=== PATIENT | male | born 1945 | race African-American/Black ===

== ENCOUNTER → 2017-03-10 | Outpatient (CLI) | payer MEDICARE, BC ==
--- NOTE | 2017-03-11 08:14 | XR ---
EXAMINATION TYPE: XR chest 2V DATE OF EXAM: 03/10/2017 COMPARISON: NONE INDICATION: Cough TECHNIQUE: Frontal and lateral views of the chest are obtained. FINDINGS: The heart size is normal. The pulmonary vasculature is normal. The lungs are clear. IMPRESSION: 1. No acute pulmonary process.
== END ==
LOC: RADXRMAIN 16:06
PROVIDERS: ATTEND Internal Medicine
DX: R05 Cough (principal)
CPT/HCPCS: 71020

== ENCOUNTER → 2019-04-19 | Outpatient (CLI) | payer MEDICARE, BC | END | disposition home or self-care (01) | LOC: LABWHC1 06:59 | PROVIDERS: ATTEND Urology | DX: R97.20 Elevated prostate specific antigen [PSA] (principal) | CPT/HCPCS: 36415; 84153; 84154 ==

== ENCOUNTER → 2020-06-17 | Outpatient (CLI) | payer MEDICARE, BC ==
--- NOTE | 2020-06-18 09:49 | MR ---
EXAMINATION TYPE: MR brain/cspine wo/w DATE OF EXAM: 06/17/2020 COMPARISON: None HISTORY: tingling fingers, shoulder pain. Technique: Multiecho multiplanar images of the brain and cervical spine were obtained with and withou t contrast. MRI brain: The ventricles, basal cisterns and sulci over the convexities are within normal limits and there is n o mass, mass effect or shift of the midline structures. No abnormal signal intensity is seen throughout the brain parenchyma. On diffusion-weighted imaging, there is no evidence of acute ischemic change. The posterior fossa including the brainstem, fourth ventricle and cerebellar pontine angles appear no rmal. Following contrast administration, there is no pathological enhancement. The intraorbital contents appear normal and symmetric. There is mild mucosal thickening in the ethmoi d sinuses indicating mild chronic sinusitis. There is moderate to marked fluid in the mastoid air moises ls bilaterally. MRI cervical spine: The craniovertebral junction relationships and prevertebral soft tissues are normal. There is moderate degenerative disc disease at the C3-4, C4-5, C5-6, C6-7 levels with moderate disc s pace narrowing, spondylosis and disc desiccation. Secondary to posterior disc bulge and spondylosis, there is mild to moderate mass effect on the ventr al aspect of the thecal sac at the C3-4, C4-5 and C5-6 levels.. At the C4-5 level there is mild cervi armando stenosis. There is neural foraminal encroachment as follows; severe at the C3-4 level on the left, severe at th e C4-5 level on the right, mild at the C4-5 level on the left, and severe at the C5-6 level on the ri ght. The cervical cord is normal in size and signal intensity. Following contrast administration, there is no pathological enhancement. The paraspinal soft tissues are unremarkable. IMPRESSION: 1. No significant abnormality of the brain. There is no evidence of mass, mass effect or acute ischem ic event. 2. Moderate diffuse degenerative disc disease throughout the cervical spine with significant neural f oraminal encroachment at multiple levels bilaterally. 3. Mild cervical stenosis at the C4-5 level. 4. Normal cervical cord.
== END | disposition home or self-care (01) ==
LOC: RADMRIMAIN 09:54
PROVIDERS: ATTEND Internal Medicine
DX: M48.02 Spinal stenosis, cervical region (principal); M50.31 Other cervical disc degeneration, high cervical region
CPT/HCPCS: 70553; 72156; A9585

== ENCOUNTER 2021-10-04 09:31 | Day surgery (SDC) | payer BC, MEDICARE ==
[2021-10-03 10:23] VITALS: BMI 35.9
[~2021-10-04 09:31] MED LIST: LACTATED RINGERS 1,000 ML IV SCH
[2021-10-04 10:30] VITALS: TEMP 96.9
[2021-10-04] MEDS ORDERED: LIDOCAINE 1% (10MG/ML) FOR IV START INTRADERMA ONE (10:47)
[2021-10-04] MEDS ORDERED: PROPOFOL 10 MG/ML 20 ML VIAL IV ONE (11:44)
--- NOTE | 2021-10-04 11:45 | P.GSHP ---
History of Present Illness H&P Date: 10/04/21 Chief Complaint: Screening colonoscopy Is a 76-year-old male presents today for colonoscopy. Patient denies a significant GI complaints. Past Medical History Past Medical History: Hyperlipidemia, Hypertension, Thyroid Disorder History of Any Multi-Drug Resistant Organisms: None Reported Past Surgical History: Prostate Surgery Additional Past Surgical History / Comment(s): TURP. COLONOSCOPY Past Anesthesia/Blood Transfusion Reactions: No Reported Reaction Smoking Status: Never smoker - Past Family History Mother Family Medical History: No Reported History Medications and Allergies Home Medications Medication Instructions Recorded Confirmed Type Aspirin [Adult Low Dose Aspirin EC] 81 mg PO DAILY 10/03/21 10/03/21 History Atorvastatin [Lipitor] 40 mg PO DAILY 10/03/21 10/04/21 History Carvedilol [Coreg] 25 mg PO BID 10/03/21 10/04/21 History Levothyroxine Sodium [Synthroid] 50 mcg PO DAILY 10/03/21 10/03/21 History Losartan [Cozaar] 50 mg PO DAILY 10/03/21 10/03/21 History Allergies Allergy/AdvReac Type Severity Reaction Status Date / Time No Known Allergies Allergy Verified 10/03/21 10:40 Surgical - Exam Vital Signs Temp Pulse Resp BP Pulse Ox 96.9 F L 88 18 166/90 99 10/04/21 10:28 10/04/21 10:28 10/04/21 10:28 10/04/21 10:28 10/04/21 10:28 - General well developed, well nourished, no distress - Eyes PERRL - ENT normal pinna, normal nares, normal mucosa - Neck no masses - Respiratory normal expansion - Cardiovascular Rhythm: regular - Abdomen Abdomen: soft, non tender Assessment and Plan Assessment: We'll perform screening colonoscopy
--- NOTE | 2021-10-04 11:58 | P.OP ---
Date of Procedure: 10/04/21 Preoperative Diagnosis: Screening colonoscopy Postoperative Diagnosis: Normal colon Procedure(s) Performed: Colonoscopy Anesthesia: MAC Surgeon: Kamari Stanton Pathology: none sent Condition: stable Disposition: PACU Description of Procedure: Nor PROCEDURE: The patient was placed on the endoscopy table in the lateral position. Digital rectal examination was performed which revealed no abnormalities. The prostate was symmetrical without nodules. Flexible colonoscope was then placed in the patient's anus and passed throughout the entire colon. The ileocecal valve was visualized. The cecum, ascending, transverse, descending and sigmoid colon were normal. The rectum was normal as well. There were no masses, polyps or diverticula noted in the entire colon. SUMMARY OF FINDINGS: Normal colonoscopy.
[2021-10-04 12:19] VITALS: RESP 16
[2021-10-04 12:20] VITALS: BP 99/61; PULSE 87
== END 2021-10-04 12:34 | disposition home or self-care (01) ==
LOC: ORWHC2ENDO 09:31
PROVIDERS: ATTEND Surgery
DX: Z12.11 Encounter for screening for malignant neoplasm of colon (principal); E07.9 Disorder of thyroid, unspecified; E78.5 Hyperlipidemia, unspecified; I10 Essential (primary) hypertension; Z79.82 Long term (current) use of aspirin; Z90.79 Acquired absence of other genital organ(s)
CPT/HCPCS: G0121; J2704

== ENCOUNTER → 2021-11-07 | Outpatient (CLI) | payer MEDICARE ==
--- NOTE | 2021-11-07 15:32 | US ---
EXAMINATION TYPE: US kidneys/renal and bladder DATE OF EXAM: 11/07/2021 COMPARISON: US December 04, 2015 CLINICAL HISTORY: N18.2 CKD STAGE 2. CKD stage 2. EXAM MEASUREMENTS: Right Kidney: 10.2 x 5.2 x 4.5 cm Left Kidney: 9.8 x 5.4 x 6.3 cm Right Kidney: Lobulated thin-walled cyst with thin septa redemonstrated medially at inferior pole: 5. 7 x 4.2 x 4.4 cm. Slightly larger from prior. Two anechoic areas seen. Larger anechoic area seen late rally at mid pole: 2.5 x 2.4 x 1.8 cm. Left Kidney: Collecting system appears to be slightly dilated. Area seen superior to the left kidne y appears to be splenic tissue. Bladder: Appears adequately distended. Bilateral Jets seen: Yes IMPRESSION: New Mild left-sided hydronephrosis may warrant further clinical workup.
[2021-11-07 23:18] LABS: African American GFR (CKD) 51.7 (60.0-200.0); Anion Gap 11.2 mmol/L (10.00-18.00); BUN/Creat Ratio 9.87 Ratio (12.00-20.00); Blood Urea Nitrogen 14.8 mg/dL (9.0-27.0); Calcium 9.1 mg/dL (8.7-10.3); Carbon Dioxide 25.8 mmol/L (20.0-27.5); Non-African American GFR(CKD) 44.6 (60.0-200.0); Potassium 4.5 mmol/L (3.5-5.5)
== END | disposition home or self-care (01) ==
LOC: RADUSWWP 14:03
PROVIDERS: ATTEND Internal Medicine Nephrology
DX: N18.2 Chronic kidney disease, stage 2 (mild) (principal)
CPT/HCPCS: 76770; 80048